=== PATIENT | female | born 2000 | race Caucasian/White ===

== ENCOUNTER 2020-11-22 14:42 | Emergency (ER) | payer BC ==
[2020-11-22 16:23] LABS: HEMOGLOBIN 14.6 gm/dl (12.3-15.3); RED BLOOD COUNT 4.87 M/UL (4.00-5.10); WHITE BLOOD COUNT 12.2 K/UL (4.5-11.0)
[2020-11-22 16:41] LABS: BUN/CREATININE RATIO 15 (0-10)
[2020-11-22] MEDS ORDERED: PHENERGAN 25 MG25 M1 PO (18:33)
== END 2020-11-22 21:45 | disposition home or self-care (01) ==
LOC: ER1 14:42
PROVIDERS: Physician Assistant
DX: O21.1 Hyperemesis gravidarum with metabolic disturbance (principal); Z3A.11 11 weeks gestation of pregnancy
CPT/HCPCS: 80053; 81001; 85025; 96374; 99284; J2550

== ENCOUNTER 2021-06-05 16:06 | Inpatient (IN) | payer BC ==
[~2021-06-05] VITALS: Ht 162.6 cm; Wt 79.4 kg
[~2021-06-05 16:06] MED LIST: PHENERGAN 25 MG25 M1 PO
[2021-06-05 16:49] LABS: HEMOGLOBIN 10.3 gm/dl (12.3-15.3); RED BLOOD COUNT 3.7 M/UL (4.00-5.10); WHITE BLOOD COUNT 9.6 K/UL (4.5-11.0)
[2021-06-05] MEDS ORDERED: VALTREX500 MG PO (18:23)
[2021-06-05] MEDS ORDERED: PRENATAL VITAM1 EAC3 PO (18:24)
[2021-06-06] MEDS ORDERED: IBUPROFEN800 MG PO (13:56)
[2021-06-06] MEDS ORDERED: COLACE100 MG PO (13:56)
[2021-06-06] MEDS ORDERED: HEMOCYTE324 MG PO (13:56)
[2021-06-07 05:43] LABS: HEMOGLOBIN 10.1 gm/dl (12.3-15.3)
== END 2021-06-08 16:24 | disposition home or self-care (01) | DRG 806 ==
LOC: GENOP 16:06 → OB 16:25
PROVIDERS: ADMIT Obstetrics & Gynecology
PROC: 3E033VJ Introduction of Other Hormone into Peripheral Vein, Percutaneous Approach (ICD-10-PCS; 2021-06-05)
PROC: 10E0XZZ Delivery of Products of Conception, External Approach (ICD-10-PCS; principal; 2021-06-06)
PROC: 10907ZC Drainage of Amniotic Fluid, Therapeutic from Products of Conception, Via Natural or Artificial Opening (ICD-10-PCS; 2021-06-06)
DX: O99.214 Obesity complicating childbirth (principal); O98.52 Other viral diseases complicating childbirth; Z37.0 Single live birth; Z3A.38 38 weeks gestation of pregnancy; Z20.822 Contact with and (suspected) exposure to COVID-19; B00.9 Herpesviral infection, unspecified
CPT/HCPCS: 36415; 81001; 85014; 85018; 85025; 90715; J2590; J7120